=== PATIENT | female | born 1965 | race Caucasian/White ===

== ENCOUNTER 2017-07-17 23:14 | Emergency (ER) | payer OTHER ==
[~2017-07-17] VITALS: Ht 157.5 cm; Wt 81.8 kg
--- NOTE | 2017-07-17 23:33 | ED.ADGEN ---
Adult General Chief Complaint Chief Complaint " I went to urgent care for my Rt. 2 nd toe infection.. and some cellulitis.. and they put me on antibiotics.. originally.. my dog " Tan " stepped on it.. but it got infect.. my Lt was swollen.. but I had friend tell me I may have a DVT.." HPI HPI Patient is a 52 year old female who presents with above hx and complaints of Rt. leg edema and hx of cellulitis. No prior hx of DVT. Pt. dose smoke. Recent trauma as cause of cellulitis. Pt. has no primary. Pt. concerned she has a DVT because of increased edema, and pain in calf. No hx. Immunosuppression. Pt. on Bactrim and Keflex with no improvement of edema in leg. Review of Systems Review of Systems Constitutional: Denies fever or chills [] Eyes: Denies change in visual acuity, redness, or eye pain [] HENT: Denies nasal congestion or sore throat [] Respiratory: Denies cough or shortness of breath [] Cardiovascular: No additional information not addressed in HPI [] GI: Denies abdominal pain, nausea, vomiting, bloody stools or diarrhea [] : Denies dysuria or hematuria [] Musculoskeletal: Denies back pain or joint pain []Calf edema and pain Integument: Hx. rash or skin lesions [] Neurologic: Denies headache, focal weakness or sensory changes [] Endocrine: Denies polyuria or polydipsia [] Family History Family History Non-contributory Current Medications Current Medications Current Medications Medications (Trade) Dose Ordered Sig/Adin Start Time Stop Time Status Last Admin Dose Admin Aspirin (Children'S Aspirin) 324 mg 1X ONCE 07/18/17 00:00 07/18/17 00:01 DC 07/18/17 00:13 324 MG Clonidine HCl (Catapres Tts-2) 1 patch STK-MED ONCE 07/18/17 01:53 07/18/17 03:05 DC Clonidine HCl (Catapres) 0.1 mg STK-MED ONCE 07/18/17 01:53 07/18/17 03:05 DC Enoxaparin Sodium (Lovenox 80mg Syringe) 80 mg 1X ONCE 07/18/17 00:00 07/18/17 00:01 DC 07/18/17 00:13 80 MG Labetalol HCl (Normodyne) 10 mg 1X ONCE 07/18/17 03:00 07/18/17 03:05 DC 07/18/17 02:30 10 MG Lactated Ringer's 1,000 ml @ 1,000 mls/hr Q1H 07/18/17 00:00 07/18/17 00:14 DC 07/18/17 00:12 1,000 MLS/HR See Nursing for home meds Allergies Allergies Allergies Coded Allergies Type Severity Reaction Last Updated Verified Penicillins Allergy Unknown 07/17/17 Yes benzocaine Allergy Unknown 07/17/17 Yes lidocaine Allergy Unknown 07/17/17 Yes Physical Exam Physical Exam Constitutional: Mild anxiety and distress, non-toxic appearance. [] HENT: Normocephalic, atraumatic, bilateral external ears normal, oropharynx moist, no oral exudates, nose normal. [] Eyes: PERRLA, EOMI, conjunctiva normal, no discharge. [] Neck: Normal range of motion, no tenderness, supple, no stridor. [] Cardiovascular:Heart rate regular rhythm, no murmur [] Lungs & Thorax: Bilateral breath sounds equal apex with scattered wheezes on auscultation [] Abdomen: Bowel sounds normal, soft, no tenderness, no masses, no pulsatile masses. [] Skin: Warm, dry, no erythema, Cellulitis ankles Back: No tenderness, no CVA tenderness. [] Extremities: No tenderness, no cyanosis, no clubbing, ROM intact, Rt calf pain and edema. Rash- cellulitis 2 toe, and leg. Neurologic: Alert and oriented X 3, normal motor function, normal sensory function, no focal deficits noted. [] Psychologic: Affect anxious, judgement normal, mood normal. [] Current Patient Data Vital Signs Vital Signs Date Time Temp Pulse Resp B/P (MAP) Pulse Ox O2 Delivery O2 Flow Rate FiO2 07/18/17 02:38 82 160/97 (118) 97 Room Air 07/18/17 02:27 16 07/17/17 23:18 98.2 Lab Results Laboratory Tests Test 07/17/17 00:48 07/17/17 23:55 Urine Collection Type Unknown Urine Color Straw Urine Clarity Clear Urine pH 6.5 Urine Specific [place] 1.010 Urine Protein Neg (NEG-TRACE) Urine Glucose (UA) Neg mg/dL (NEG) Urine Ketones (Stick) Neg mg/dL (NEG) Urine Blood Trace (NEG) Urine Nitrite Neg (NEG) Urine Bilirubin Neg (NEG) Urine Urobilinogen Dipstick 0.2 mg/dL (0.2 mg/dL) Urine Leukocyte Esterase Neg (NEG) Urine RBC Occ /HPF (0-2) Urine WBC Occ /HPF (0-4) Urine Squamous Epithelial Cells Occ /LPF Urine Bacteria Few /HPF (0-FEW) White Blood Count 8.6 x10^3/uL (4.0-11.0) Red Blood Count 5.26 x10^6/uL (3.50-5.40) Hemoglobin 15.5 g/dL (12.0-15.5) Hematocrit 45.0 % (36.0-47.0) Mean Corpuscular Volume 86 fL (79-100) Mean Corpuscular Hemoglobin 29 pg (25-35) Mean Corpuscular Hemoglobin Concent 34 g/dL (31-37) Red Cell Distribution Width 15.6 % (11.5-14.5) H Platelet Count 217 x10^3/uL (140-400) Neutrophils (%) (Auto) 71 % (31-73) Lymphocytes (%) (Auto) 21 % (24-48) L Monocytes (%) (Auto) 6 % (0-9) Eosinophils (%) (Auto) 2 % (0-3) Basophils (%) (Auto) 0 % (0-3) Neutrophils # (Auto) 6.1 x10^3uL (1.8-7.7) Lymphocytes # (Auto) 1.8 x10^3/uL (1.0-4.8) Monocytes # (Auto) 0.5 x10^3/uL (0.0-1.1) Eosinophils # (Auto) 0.1 x10^3/uL (0.0-0.7) Basophils # (Auto) 0.0 x10^3/uL (0.0-0.2) Prothrombin Time 9.9 SEC (9.4-11.4) Prothrombin Time INR 1.0 (0.9-1.1) PTT 25 SEC (23-33) D-Dimer (Nury) 0.38 mg/L (0.00-0.50) Sodium Level 141 mmol/L (136-145) Potassium Level 4.0 mmol/L (3.5-5.1) Chloride Level 106 mmol/L (98-107) Carbon Dioxide Level 26 mmol/L (21-32) Anion Gap 9 (6-14) Blood Urea Nitrogen 11 mg/dL (7-20) Creatinine 0.8 mg/dL (0.6-1.0) Estimated GFR (Cockcroft-Gault) 75.9 Glucose Level 101 mg/dL (70-99) H Calcium Level 8.9 mg/dL (8.5-10.1) Total Bilirubin 0.3 mg/dL (0.2-1.0) Direct Bilirubin 0.1 mg/dL (0.0-0.2) Aspartate Amino Transferase (AST) 22 U/L (15-37) Alanine Aminotransferase (ALT) 39 U/L (14-59) Alkaline Phosphatase 100 U/L (46-116) Troponin I Quantitative < 0.017 ng/mL (0-0.055) Total Protein 7.2 g/dL (6.4-8.2) Albumin 4.3 g/dL (3.4-5.0) EKG EKG My interpretation of EKG shows a sinus rhythm at 86 bpm. Some nonspecific contour changes in anterior lateral area. But no findings acute STEMI of contralateral changes.[] Radiology/Procedures Radiology/Procedures Ultrasound shows no obvious DVT [] Course & Med Decision Making Course & Med Decision Making Pertinent Labs and Imaging studies reviewed. (See chart for details). Must follow up elevate BP. Push fluids. Take antibiotic as directed. Stop smoking. Recheck BP and urine with primary. Pt. advise must be followed up. In to wear a clonidine patch until follow-up. [] Final Impression Final Impression 1. No DVT per US 2. UTI 3. Cellulitis 4. Hypertension- accelerated 5. Tobacco Use[] Problems: Dragon Disclaimer Dragon Disclaimer This electronic medical record was generated, in whole or in part, using a voice recognition dictation system. JAZZ DE SOUZA MD Jul 17, 2017 23:33
[2017-07-18] MEDS ORDERED: ASPIRIN 81 MG TAB.CHEW PO ONE
[2017-07-18] MEDS ORDERED: IV RINGERS SOLUTION,LACTATED 1,000 ML IV SCH
[2017-07-18] MEDS ORDERED: ENOXAPARIN ** NOTE DOSE ** SYRINGE SQ ONE
[2017-07-18 00:14] LABS: BASO % 0 % (0-3); EOS # 0.1 x10^3/uL (0.0-0.7); EOS % 2 % (0-3); HEMOGLOBIN 15.5 g/dL (12.0-15.5); LYMPH # 1.8 x10^3/uL (1.0-4.8); LYMPH % 21 % (24-48); MEAN CORPUSCULAR HEMOGLOBIN 29 pg (25-35); MEAN CORPUSCULAR HGB CONC 34 g/dL (31-37); MEAN CORPUSCULAR VOLUME 86 fL (79-100); MONO # 0.5 x10^3/uL (0.0-1.1); MONO % 6 % (0-9); NEUT # 6.1 x10^3uL (1.8-7.7); NEUT % 71 % (31-73); PLATELET COUNT 217 x10^3/uL (140-400); RED BLOOD COUNT 5.26 x10^6/uL (3.50-5.40); RED CELL DISTRIBUTION WIDTH 15.6 % (11.5-14.5); WHITE BLOOD COUNT 8.6 x10^3/uL (4.0-11.0)
[2017-07-18 00:27] LABS: ALBUMIN 4.3 g/dL (3.4-5.0); CALCIUM 8.9 mg/dL (8.5-10.1); CREATININE 0.8 mg/dL (0.6-1.0); DIRECT BILIRUBIN 0.1 mg/dL (0.0-0.2); GFR 75.9; TOTAL BILIRUBIN 0.3 mg/dL (0.2-1.0); TOTAL PROTEIN 7.2 g/dL (6.4-8.2)
[2017-07-18 01:12] LABS: BACTERIA,URINE FEW /HPF (0-FEW); BILIRUBIN,URINE NEG (NEG); CLARITY,URINE CLEAR; COLOR,URINE STRAW; GLUCOSE,URINE NEG (NEG); NITRITE,URINE NEG (NEG); RBC,URINE OCC /HPF (0-2); SQUAMOUS EPITHELIAL CELL,UR OCC /LPF; UROBILINOGEN,URINE 0.2 mg/dL (0.2 mg/dL); WBC,URINE OCC /HPF (0-4)
--- NOTE | 2017-07-18 01:20 | RAD ---
INDICATION: Right leg pain and swelling COMPARISON: None. TECHNIQUE: Grayscale, color and doppler ultrasound images were obtained of the right lower extremity venous vasculature. RIGHT: No thrombus identified in the common femoral vein, femoral vein, popliteal vein or visualized calf veins. IMPRESSION: 1. No thrombus identified in deep venous system of right lower extremity. Electronically signed by: Jamie Tyler MD (07/18/2017 1:17 AM) [id number]
[2017-07-18] MEDS ORDERED: cloNIDine HCL 0.1 MG TABLET PO ONE (01:45)
[2017-07-18] MEDS ORDERED: cloNIDine TTS-2 1 PATCH PATCH TD ONE ×2 (01:45→01:53)
[2017-07-18] MEDS ORDERED: cloNIDine HCL 0.1 MG TABLET ONE (01:53)
[2017-07-18] MEDS ORDERED: LABETALOL 20 MG/4 ML DISP.SYRIN. ONE (02:28)
[2017-07-18 02:38] VITALS: BP 160/97
[2017-07-18] MEDS ORDERED: LABETALOL 20 MG/4 ML DISP.SYRIN. IVP ONE (03:00)
--- NOTE | 2017-07-18 06:30 | EKG ---
[address] [address] Test Date: 2017-07-18 Test Time: 00:11:04 Pat Name: WHITNEY JORGE Department: Room: Gender: F [employer] Counselor: VIVIENNE : 1965 Requested By: JAZZ DE SOUZA Order Number: [id number] Reading MD: Joseluis Boyd Measurements Intervals [place] Rate: 86 P: 40 AK: 138 QRS: 11 QRSD: 92 T: 17 QT: 364 QTc: 439 Interpretive Statements SINUS RHYTHM Electronically Signed On 07-18-2017 15:34:20 CDT by Joseluis Boyd
== END 2017-07-18 02:40 | disposition home or self-care (01) ==
LOC: ER 23:14
DX: L03.115 Cellulitis of right lower limb (principal); I10 Essential (primary) hypertension; Z72.0 Tobacco use; Z88.0 Allergy status to penicillin; Z88.4 Allergy status to anesthetic agent
CPT/HCPCS: 36415; 80048; 80076; 81001; 84484; 85025; 85379; 85610; 85730; 93005; 93971; 96361; 96372; 96374; 99285; J1650; J3490; J7120

== ENCOUNTER → 2019-06-15 | Outpatient (CLI) | payer OTHER ==
[~2019-06-15] MED LIST: IOHEXOL 240 MG/ML 50ML VIAL. ONE; IOHEXOL 240 MG/ML 50ML VIAL. PO ONE; IOHEXOL 300 MG/ML 75 ML VIAL. IV ONE
--- NOTE | 2019-06-15 13:37 | RAD ---
EXAM: Abdomen and pelvis CT with intravenous contrast. HISTORY: Epigastric pain and bloating. TECHNIQUE: Computed tomographic images of the abdomen and pelvis were obtained following the administration of 75 cc Isovue 370 intravenous contrast. Multiplanar reformatting was performed. *One or more of the following individualized dose reduction techniques were utilized for this examination: 1. Automated exposure control. 2. Adjustment of the mA and/or kV according to patient size. 3. Use of iterative reconstruction technique. COMPARISON: None. FINDINGS: Evaluation of the lower thorax demonstrates posterior dependent and basilar atelectasis. There are few pleural-based nodules within the left lung base, largest which measures 6 mm. There is a 6 mm nodule within the right middle lobe. There are chronic interstitial changes. There is no consolidation. There is hepatic steatosis. There is a 10 mm hyperdense lesion within the tip of the right hepatic lobe, too small to characterize. The gallbladder, pancreas, spleen, adrenal glands and kidneys are unremarkable. There is no appendicitis or bowel obstruction. There is no abnormal bowel wall thickening. There is distal colonic diverticulosis. The urinary bladder is unremarkable. There is a small calcified fibroid within the uterus. The ovaries are unremarkable. There is no lymphadenopathy. The aorta is normal in caliber. There is a circumaortic left renal vein, a normal variant. There is no suspicious osseous lesion. There is grade 1 anterolisthesis with pars defects and advanced degenerative change at the lumbosacral junction. IMPRESSION: 1. Hepatic steatosis. There is a 10 mm indeterminant hypodense lesion within the right hepatic lobe. In the absence of known malignancy, this may be a cyst or hemangioma. This may be visible sonographically. 2. Distal colonic diverticulosis without evidence of diverticulitis. 3. Grade 1 anterolisthesis with pars defects and advanced degenerative change at the lumbosacral junction. Electronically signed by: Alka Green MD (06/15/2019 1:34 PM) [place] [id number]
== END | disposition home or self-care (01) ==
LOC: CT 07:40
PROVIDERS: ATTEND Physician Assistant Medical
DX: K57.30 Diverticulosis of large intestine without perforation or abscess without bleeding (principal); K76.0 Fatty (change of) liver, not elsewhere classified; D25.9 Leiomyoma of uterus, unspecified; R91.8 Other nonspecific abnormal finding of lung field; J98.11 Atelectasis; I10 Essential (primary) hypertension; F17.200 Nicotine dependence, unspecified, uncomplicated; Z88.0 Allergy status to penicillin
CPT/HCPCS: 74177; Q9966; Q9967

== ENCOUNTER 2021-03-20 09:00 | Emergency (ER) | payer SELFPAY ==
[~2021-03-20] VITALS: Ht 157.5 cm; Wt 72.7 kg
[2021-03-20 09:06] VITALS: BP 195/110
--- NOTE | 2021-03-20 09:39 | RAD ---
Exam performed: 3 views leftwrist. Clinical Indication: Left wrist pain status post injury Date of Service: 03/20/2021 Comparison: None available Findings: PA, oblique and lateral radiographs of the wrist reveal the osseous structures to be intact and well aligned. The joint spaces are well-preserved and the articular margins are smooth. Evidence of acute fracture, dislocation or other significant osseous abnormality is not identified. Impression: No acute abnormality seen in the left wrist Electronically signed by: Dorothy Lin MD (03/20/2021 9:37 AM) [id number]
--- NOTE | 2021-03-20 10:04 | PHYS DOC ---
Past History Past Medical History: No Pertinent History Past Surgical History: No Surgical History Alcohol Use: None Drug Use: None General Adult EDM: Chief Complaint: WRIST PAIN HPI: HPI: Patient is a [age] year old [sex] who presents with [] Review of Systems: Review of Systems: Constitutional: Denies fever or chills Eyes: Denies change in visual acuity HENT: Denies nasal congestion or sore throat Respiratory: Denies cough or shortness of breath Cardiovascular: Denies chest pain or edema GI: Denies abdominal pain, nausea, vomiting, bloody stools or diarrhea : Denies dysuria Musculoskeletal: Denies back pain or joint pain Integument: Denies rash Neurologic: Denies headache, focal weakness or sensory changes Endocrine: Denies polyuria or polydipsia Lymphatic: Denies swollen glands Psychiatric: Denies depression or anxiety Allergies: Allergies: Allergies Coded Allergies Type Severity Reaction Last Updated Verified Penicillins Allergy Unknown 07/17/17 Yes benzocaine Allergy Unknown 07/17/17 Yes lidocaine Allergy Unknown 07/17/17 Yes Physical Exam: PE: Constitutional: Well developed, well nourished, no acute distress, non-toxic appearance. [] HENT: Normocephalic, atraumatic, bilateral external ears normal, oropharynx moist, no oral exudates, nose normal. [] Eyes: PERRLA, EOMI, conjunctiva normal, no discharge. [] Neck: Normal range of motion, no tenderness, supple, no stridor. [] Cardiovascular:Heart rate regular rhythm, no murmur [] Lungs & Thorax: Bilateral breath sounds clear to auscultation [] Abdomen: Bowel sounds normal, soft, no tenderness, no masses, no pulsatile masses. [] Skin: Warm, dry, no erythema, no rash. [] Back: No tenderness, no CVA tenderness. [] Extremities: No tenderness, no cyanosis, no clubbing, ROM intact, no edema. [] Neurologic: Alert and oriented X 3, normal motor function, normal sensory function, no focal deficits noted. [] Psychologic: Affect normal, judgement normal, mood normal. [] Current Patient Data: Vital Signs: Vital Signs Date Time Temp Pulse Resp B/P (MAP) Pulse Ox O2 Delivery O2 Flow Rate FiO2 03/20/21 09:06 97.9 96 16 195/110 (138) 92 Room Air EKG: EKG: [] Radiology/Procedures: Radiology/Procedures: [] Heart Score: Risk Factors: Risk Factors: DM, Current or recent (<one month) smoker, HTN, HLP, family history of CAD, obesity. Risk Scores: Score 0 - 3: 2.5% MACE over next 6 weeks - Discharge Home Score 4 - 6: 20.3% MACE over next 6 weeks - Admit for Clinical Observation Score 7 - 10: 72.7% MACE over next 6 weeks - Early Invasive Strategies Course & Med Decision Making: Course & Med Decision Making Pertinent Labs and Imaging studies reviewed. (See chart for details) [] Dragon Disclaimer: Dragon Disclaimer: This electronic medical record was generated, in whole or in part, using a voice recognition dictation system. Departure Departure: Impression: Primary Impression: Contusion of wrist, left Qualified Codes: S60.212A - Contusion of left wrist, initial encounter Disposition: HOME / SELF CARE / HOMELESS Condition: STABLE Referrals: LADAN SUAREZ (PCP) Patient Instructions: Contusion, [id number], Elastic Bandage and RICE, Wrist Pain, [id number] Additional Instructions: Ice area of discomfort 20 minutes on/20 minutes off for the next few days. Repeat several times daily as needed. Take [id number] ibuprofen/Aleve and/or Tylenol as needed for pain or discomfort. SHERI TY DO March 20, 2021 10:04
== END 2021-03-20 10:12 | disposition home or self-care (01) ==
LOC: ER 09:00
DX: S60.212A Contusion of left wrist, initial encounter (principal); Z88.0 Allergy status to penicillin; Z88.4 Allergy status to anesthetic agent; W22.8XXA Striking against or struck by other objects, initial encounter; Y93.89 Activity, other specified; Y92.89 Other specified places as the place of occurrence of the external cause; Y99.8 Other external cause status
CPT/HCPCS: 29125; 73110; 99283